=== PATIENT | female | born 1965 | race Caucasian/White ===

== ENCOUNTER 2016-12-07 21:12 | Emergency (ER) | payer BC ==
[2016-12-07 21:34] VITALS: BP 162/93
--- NOTE | 2016-12-07 21:40 | EDM.PDOC ---
ED UPPER BACK/NECK PAIN/INJURY - General Chief Complaint: Back Pain or Injury Stated Complaint: BACK PAIN Time Seen by Provider: 12/07/16 21:23 Source: Reports: Patient History Limitations: Reports: No limitations - History of Present Illness INITIAL COMMENTS - FREE TEXT/NARRATIVE: History of present illness: [51-year-old female presenting with right upper back pain. She's been using a were to below the knees this week. The only reserved and so she has a lot of leaves she has been clearing. She has no prior history of back surgeries or back injuries. She has no fevers or chills cough or shortness of breath. She has spasms of pain that almost bring her to her knees.] Review of systems: As per history of present illness and below otherwise all systems reviewed and negative. Past medical history: As per history of present illness and as reviewed below otherwise noncontributory. Surgical history: As per history of present illness and as reviewed below otherwise noncontributory. Social history: No reported history of drug or alcohol abuse. Family history: As per history of present illness and as reviewed below otherwise noncontributory. Physical exam: HEENT: Atraumatic, normocephalic, pupils reactive, negative for conjunctival pallor or scleral icterus, mucous membranes moist, throat clear, neck supple, nontender, trachea midline. Lungs: Clear to auscultation, breath sounds equal bilaterally, chest nontender. Heart: S1S2, regular, negative for clicks, rubs, or JVD. Abdomen: Soft, nondistended, nontender. Negative for masses or hepatosplenomegaly. Negative for costovertebral tenderness. Pelvis: Stable nontender. Genitourinary: Deferred. Back: The right paraspinal muscles of the mid thorax are painful to palpation and cordlike. Rectal: Deferred. Extremities: Atraumatic, negative for cords or calf pain. Neurovascular unremarkable. Neuro: Awake, alert, oriented. Exam nonfocal. Diagnostics: [] Therapeutics: [] Impression: [Acute mid back pain] Plan: [She's provided with Anderson and Flexeril and will followup with her primary care provider. We discussed the possibility of physical therapy or massage therapy.] Definitive disposition and diagnosis as appropriate pending reevaluation and review of above. 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 ED EXAM, UPPER BACK/NECK PAIN - Physical Exam Exam: See Below Course - Vital Signs Last Recorded V/S: Last Vital Signs Temp 35.9 C 12/07/16 21:16 Pulse 89 12/07/16 21:16 Resp 18 12/07/16 21:16 BP 162/93 H 12/07/16 21:16 Pulse Ox 96 12/07/16 21:16 Departure - Departure Time of Disposition: 21:39 Disposition: Home, Self-Care 01 Condition: good Clinical Impression: Acute mid back pain Forms: ED Department Discharge Additional Instructions: Please followup with your primary care doctor. He or she may refer you to physical therapy and you may also benefit from massage therapy. You may want to try icing your back tonight.
== END 2016-12-07 21:55 | disposition home or self-care (01) ==
LOC: JP.ED 21:12
DX: M54.9 Dorsalgia, unspecified (principal); E03.9 Hypothyroidism, unspecified; Z90.722 Acquired absence of ovaries, bilateral; Z79.899 Other long term (current) drug therapy
CPT/HCPCS: 99283

== ENCOUNTER 2019-02-06 00:46 | Emergency (ER) | payer BC ==
--- NOTE | 2019-02-06 01:15 | EDM.PDOC ---
ED HPI GENERAL MEDICAL PROBLEM - General Chief Complaint: Chest Pain Stated Complaint: CHEST PAIN Time Seen by Provider: 02/06/19 01:10 Source of Information: Reports: Patient History Limitations: Reports: No Limitations - History of Present Illness INITIAL COMMENTS - FREE TEXT/NARRATIVE: This lady comes in complaining of upper left sternal border pain is began about 2-1/2 hours ago. She felt a little bit short of breath. The pain increases a little bit with deep inspiration. It actually feels better when she pushes on her chest she denies any nausea and there's been no sweats. No history of heart disease. 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 ED EXAM, GENERAL - Physical Exam Exam: See Below Exam Limited By: No Limitations General Appearance: Alert, No Apparent Distress, Obese Eye Exam: Bilateral Eye: Normal Inspection Respiratory/Chest: Lungs Clear, Other (There is some mild tenderness along the left sternal border which she said reproduces the pain she's been having) Cardiovascular: Normal Peripheral Pulses, Regular Rate, Rhythm, No Murmur Extremities: Normal Inspection Neurological: Alert, Oriented Psychiatric: Normal Affect Skin Exam: Warm, Dry Course - Vital Signs Last Recorded V/S: Last Vital Signs Temp 35.7 C 02/06/19 00:53 Pulse 77 02/06/19 02:47 Resp 16 02/06/19 00:53 BP 153/80 H 02/06/19 02:47 Pulse Ox 98 02/06/19 00:53 - Orders/Labs/Meds Orders: Active Orders 24 hr Category Date Time Status EKG Documentation Completion [RC] ASDIRECTED Care 02/06/19 01:11 Active Heparin Sodium Med 02/06/19 03:01 Once 4,000 units IVPUSH ONETIME ONE Heparin Sodium/D5W [Heparin 25,000 Units in D5W 500 ML] Med 02/06/19 03:00 Ordered 25,000 units in 500 ml IV TITRATE Nitroglycerin [Nitrostat] Med 02/06/19 02:09 Active 0.4 mg SL Q5M PRN EKG 12 Lead [EK] Urgent Ther 02/06/19 01:11 Ordered Medication Orders Heparin Sodium (Porcine) (Heparin Sodium) 4,000 units IVPUSH ONETIME ONE Stop: 02/06/19 03:02 Heparin Sodium/Dextrose (Heparin 25,000 Units In D5w 500 Ml) 25,000 units in 500 mls @ 25.365 mls/hr IV TITRATE ADA; Protocol Nitroglycerin (Nitrostat) 0.4 mg SL Q5M PRN PRN Reason: Chest Pain Last Admin: 02/06/19 02:22 Dose: 0.4 mg Labs: Laboratory Tests 02/06/19 02/06/19 02/06/19 Range/Units 01:11 01:11 01:11 WBC 7.6 (4.5-11.0) K/uL RBC 4.45 (3.30-5.50) M/uL Hgb 13.2 (12.0-15.0) g/dL Hct 39.8 (36.0-48.0) % MCV 89 (80-98) fL MCH 30 (27-31) pg MCHC 33 (32-36) % Plt Count 252 (150-400) K/uL Neut % (Auto) 54 (36-66) % Lymph % (Auto) 34 (24-44) % Bartholomew % (Auto) 9 H (2-6) % Eos % (Auto) 3 (2-4) % Baso % (Auto) 1 (0-1) % D-Dimer, Quantitative < 100 (0.0-400.0) ng/mL Sodium 140 (140-148) mmol/L Potassium 3.6 (3.6-5.2) mmol/L Chloride 105 (100-108) mmol/L Carbon Dioxide 28 (21-32) mmol/L Anion Gap 6.7 (5.0-14.0) mmol/L BUN 12 (7-18) mg/dL Creatinine 0.7 (0.6-1.0) mg/dL Est Cr Clr Drug Dosing 76.88 mL/min Estimated GFR (MDRD) > 60 (>60) Glucose 116 H (74-106) mg/dL Calcium 9.1 (8.5-10.1) mg/dL Total Bilirubin 0.3 (0.2-1.0) mg/dL AST 21 (15-37) U/L ALT 52 (12-78) U/L Alkaline Phosphatase 58 (46-116) U/L Troponin I 0.181 H* (0.000-0.056) ng/mL Total Protein 6.6 (6.4-8.2) g/dL Albumin 3.4 (3.4-5.0) g/dL Globulin 3.2 (2.3-3.5) g/dL Albumin/Globulin Ratio 1.1 L (1.2-2.2) Meds: Medications Generic Name Dose Route Start Last Admin Trade Name Freq PRN Reason Stop Dose Admin Heparin Sodium (Porcine) 4,000 units 02/06/19 03:01 Heparin Sodium IVPUSH 02/06/19 03:02 ONETIME ONE Heparin Sodium/Dextrose 25,000 units in 500 mls @ 25.365 mls/hr 02/06/19 03: 00 Heparin 25,000 Units In D5w 500 Ml IV TITRATE ADA Protocol 12 UNITS/KG/HR Nitroglycerin 0.4 mg 02/06/19 02:09 02/06/19 02:22 Nitrostat SL 0.4 mg Q5M PRN Administration Chest Pain Discontinued Medications Generic Name Dose Route Start Last Admin Trade Name Freq PRN Reason Stop Dose Admin Aspirin 324 mg 02/06/19 02:51 Aspirin PO 02/06/19 02:52 ONETIME ONE Clopidogrel Bisulfate 600 mg 02/06/19 02:57 Plavix PO 02/06/19 02:58 ONETIME ONE - Re-Assessments/Exams Free Text/Narrative Re-Assessment/Exam: 02/06/19 01:14 EKG shows normal sinus rhythm at 74 bpm normal QRS normal ST and T waves 02/06/19 03:02 Troponin 0.181. I gave 1 sublingual nitroglycerin and quickly relieved her pain. She received aspirin 324 mg chewed, Plavix 600 mg orally, heparin 4000 units bolus followed by drip per non-STEMI protocol I spoke with at [facility] in [place] and he has accepted the patient 02/06/19 03:04 Departure - Departure Time of Disposition: 03:05 Disposition: DC/Tfer to Acute Hospital 02 Reason for Transfer *Q: Primary PCI Indicated Condition: Serious Clinical Impression: Non-STEMI (non-ST elevated myocardial infarction) Referrals: Michael Baires MD [Primary Care Provider] - Forms: ED Department Discharge - My Orders Last 24 Hours: My Active Orders 02/06/19 01:11 EKG Documentation Completion [RC] ASDIRECTED EKG 12 Lead [EK] Urgent 02/06/19 02:09 Nitroglycerin [Nitrostat] 0.4 mg SL Q5M PRN 02/06/19 03:00 Heparin Sodium/D5W [Heparin 25,000 Units in D5W 500 ML] 25,000 units in 500 ml IV TITRATE 02/06/19 03:01 Heparin Sodium 4,000 units IVPUSH ONETIME ONE - Assessment/Plan Last 24 Hours: My Active Orders 02/06/19 01:11 EKG Documentation Completion [RC] ASDIRECTED EKG 12 Lead [EK] Urgent 02/06/19 02:09 Nitroglycerin [Nitrostat] 0.4 mg SL Q5M PRN 02/06/19 03:00 Heparin Sodium/D5W [Heparin 25,000 Units in D5W 500 ML] 25,000 units in 500 ml IV TITRATE 02/06/19 03:01 Heparin Sodium 4,000 units IVPUSH ONETIME ONE
--- NOTE | 2019-02-06 01:56 | CRLCR ---
INDICATION: chest pain TECHNIQUE: Chest 1 view. COMPARISON: 06/02/13 FINDINGS: Cardiovascular and mediastinum: Heart size and vasculature are normal in caliber and appearance. Mediastinum is within normal limits. Lungs and pleural space: Lungs are clear. No sign of infiltrate or mass. No sign of pleural effusion. No pneumothorax. Bones and soft tissues: No significant findings. IMPRESSION: Unremarkable chest. Dictated by: Michael Arauz MD @ 02/06/2019 01:55:23 (Electronically Signed)
[2019-02-06] MEDS ORDERED: Nitroglycerin 0.4 MG Tab.SL SL PRN (02:09)
[2019-02-06] MEDS ORDERED: Aspirin 81 MG Tab.Chew PO ONE (02:51)
[2019-02-06] MEDS ORDERED: Clopidogrel 75 MG Tab PO ONE (02:57)
[2019-02-06] MEDS ORDERED: Heparin Sodium/D5W 25,000 UNITS/500 ML BAG IV SCH (03:00)
[2019-02-06] MEDS ORDERED: Heparin Sodium 5,000 Units/ML Vial IVPUSH ONE (03:01)
[2019-02-06 03:38] VITALS: BP 185/90; PULSE 86
== END 2019-02-06 03:38 ==
LOC: JP.ED 00:46
DX: I21.4 Non-ST elevation (NSTEMI) myocardial infarction (principal); E78.00 Pure hypercholesterolemia, unspecified; E03.9 Hypothyroidism, unspecified; Z79.899 Other long term (current) drug therapy; Z82.49 Family history of ischemic heart disease and other diseases of the circulatory system
CPT/HCPCS: 36415; 71045; 80053; 84484; 85025; 85379; 93005; 96374; 99285; A9270; J1644